=== PATIENT | male | born 1980 | race Caucasian/White ===

== ENCOUNTER 2022-12-18 09:08 | Day surgery (SDC) | payer OTHER ==
[~2022-12-18 09:08] MED LIST: Lactated Ringers 1,000 ML IV SCH; Sodium Chloride 0.9% 10 ML Syringe FLUSH PRN
[2022-12-18] MEDS ORDERED: fentaNYL 100 MCG/2 ML SDV ONE (09:43)
[2022-12-18] MEDS ORDERED: Propofol 200 MG/20 ML SDV ONE ×2 (09:43→11:04)
== END 2022-12-18 13:50 | disposition home or self-care (01) ==
LOC: VM.SDS 09:08 → MERGE 02-19 09:10
PROVIDERS: ATTEND Family Medicine
DX: D12.6 Benign neoplasm of colon, unspecified (principal); K64.8 Other hemorrhoids; I10 Essential (primary) hypertension; D44.7 Neoplasm of uncertain behavior of aortic body and other paraganglia; Z98.890 Other specified postprocedural states; Z80.0 Family history of malignant neoplasm of digestive organs; Z88.0 Allergy status to penicillin; Z79.899 Other long term (current) drug therapy; Z87.891 Personal history of nicotine dependence
CPT/HCPCS: 00811; J2704; J3010; J7120